=== PATIENT | female | born 1955 | race Caucasian/White ===

== ENCOUNTER 2019-05-12 12:56 | Day surgery (SDC) | payer OTHER, SELFPAY ==
[2019-05-12] VITALS (7 sets, daily range): BP systolic 120–153; BP diastolic 65–84; PULSE 61–75; RESP 14–17; TEMP 35.6–36.3; O2SAT 91–99; BMI 34.2
[2019-05-12] MEDS: SODIUM CHLORIDE 0.9% 1,000 ML 200 ML IV (13:44)
--- NOTE | 2019-05-12 14:27 | PM.HP.1 ---
History of Present Illness History of Present Illness Date Patient Seen: 05/12/19 Time Patient Seen: 14:29 Chief complaint: [id number] SCREENING COLONOSCOPY Narrative: Patient presents for colorectal screening. Had a screening colonoscopy 5 years ago that demonstrated several adenomatous polyps which were removed. No personal or family history of colon cancer. On further history denies any recent gastrointestinal symptoms. No nausea, vomiting, abdominal pain, loss of appetite, unexplained weight loss, change in bowel habits, diarrhea, constipation, melena, hematochezia, or bright red blood per rectum. Patient History Medical History Adenoma of colon (Acute) Blackhead (Acute) Breast cancer (Acute) Surgical History H/O mastectomy (Acute) Family & Social History Social History: household members spouse Tobacco & Substance use: Smoking Status Never smoker alcohol intake current alcohol intake frequency a few times a week Substance Use Type does not use Meds Home Medications and Allergies Home Medications Medication Instructions Recorded Confirmed Type biotin 1 mg PO DAILY 05/12/19 05/12/19 History cholecalciferol (vitamin D3) 2,000 unit PO DAILY 05/12/19 05/12/19 History [Vitamin D3] fexofenadine-pseudoephedrine 1 tab PO QAM 05/12/19 05/12/19 History [Katt-D 24 Hour] jbvhgwrm-kzz-LX-lycopen-lutein 1 tab PO DAILY 05/12/19 05/12/19 History [Centrum Silver] Allergies Allergy/AdvReac Type Severity Reaction Status Date / Time No Known Drug Allergies Allergy Verified 05/12/19 13:44 Review of Systems Review of Systems Narrative: A 10 point review of systems is negative except as noted in the HPI Exam Vital Signs (past 8 hours): - 05/12/19 13:59 Temperature 97.4 F L Pulse Rate 67 Respiratory Rate 15 Blood Pressure 120/72 Pulse Oximetry 97 Oxygen Delivery Method Room Air Narrative Exam Narrative: General-no acute distress, well nourished HEENT-moist mucous membranes, no scleral icterus Neck-supple, no lymphadenopathy Chest- non labored respirations, clear to auscultation bilaterally Cardiac-regular rate no peripheral edema Abdomen-soft, nontender, non distended Extremities-warm, well perfused Neurological-alert and oriented, no focal deficits Assessment & Plan Assessment and plan (1) Screening for colon cancer: Current visit: Yes Status: Acute Assessment & Plan narrative: The patient requires colorectal screening and colonoscopy is recommended. Technical details were discussed. Risks, benefits, alternatives explained. Risks including but not limited to myocardial infarction, aspiration, bleeding, pain, missed lesion, incomplete examination, need for further radiographic studies, colonic perforation, and need for major abdominal surgery were discussed. All questions were answered to their satisfaction, and they are in agreement with this plan.
[2019-05-12] MEDS: MIDAZOLAM 5 MG/5 ML VIAL IV (14:32)
[2019-05-12] MEDS: fentaNYL 250 MCG/5 ML INJ IV (14:33)
--- NOTE | 2019-05-12 14:37 | SUR.OPER ---
GLASSES IN A LABELED BAG TO PACU WITH PATIENT.
--- NOTE | 2019-05-12 15:10 | PM.OP.ENDO ---
Operative Date/Time/Diagnoses Date of procedure: 05/12/19 Time of procedure: 15:11 Pre-op diagnosis: Screening colonoscopy Post-op diagnosis: same Procedure & Clinicians Study performed: Colonoscopy Same procedure as scheduled: Yes Indications: 63-year-old female last colonoscopy 5 years ago demonstrated adenomatous polyps which were removed presents for routine surveillance. Surgeon: Keshav Barrios Procedure Notes SCOAP/Timeout: Performed Procedure in detail: Patient placed in left lateral decubitus position. Time out was performed. Procedural sedation was administered with Versed and Fentanyl. A rectal exam demonstrated no external hemorrhoids no internal masses. Colonoscopy scope was placed into the rectum and advanced through the colon to the cecum. The ileocecal valve was identified. The scope was then slowly withdrawn examining colon thoroughly in all directions. The colonoscopy was notable for the following 1. No masses or polyps 2. Sigmoid diverticulosis 3. Quality of prep excellent Scope withdrawal time: 6 Sedation minutes: 33 Findings: diverticulosis Specimen(s): none sent Complications: none Impression: Diverticulosis Post-procedure Recommendations: Colonscopy in 10 years Disposition: same day surgery
== END 2019-05-12 16:28 | disposition home or self-care (01) ==
PROVIDERS: Family Provider Physician Assistant Medical; PCP Physician Assistant Medical; Visit Provider Surgery
PROC: 0DJD8ZZ Inspection of Lower Intestinal Tract, Via Natural or Artificial Opening Endoscopic (ICD-10-PCS; CPT 45378; principal; 2019-05-12 14:30)
DX: Z12.11 Encounter for screening for malignant neoplasm of colon (principal); Z86.010 Personal history of colon polyps; K57.30 Diverticulosis of large intestine without perforation or abscess without bleeding
CPT/HCPCS: 45378; 99152; 99153; J2250; J3010

== ENCOUNTER → 2023-05-27 09:50 | Outpatient (CLI) | payer MEDICARE, SELFPAY ==
[2023-05-27 10:20] LABS: Hematocrit 39.5 % (36-46); Hemoglobin 13.2 g/dL (12.0-16.0); Mean Corpuscular HGB Conc 33.5 % (30-36); Mean Corpuscular Hemoglobin 30.1 PG (26-34); Mean Corpuscular Volume 89.7 fL (80-100); Platelet Count 143 X10^3/uL (150-400); Red Cell Distribution Width 13.5 % (11.6-14.8); White Blood Cell Count 6.6 X10^3/uL (4.5-11.0)
[2023-05-27 10:50] LABS: Alanine Aminotransferase 30 IU/L (<35); Albumin 4.1 g/dL (3.5-5.0); Albumin Globulin Ratio 1.4 (1.0-2.8); Alkaline Phosphatase 64 U/L (38-126); Aspartate Aminotransferase 32 IU/L (14-36); Bilirubin Total 0.8 mg/dL (0.2-1.3); Blood Urea Nitrogen 18 mg/dL (7-17); Calcium 9.5 mg/dL (8.4-10.2); Carbon Dioxide 30 mmol/L (22-32); Chloride 105 mmol/L (98-107); Cholesterol 193 mg/dL (140-199); Estimated Glomerular Filt Rate > 60 mL/min (>60); Globulin 2.9 g/dL (1.7-4.1); Glucose 99 mg/dL (80-110); HDL Cholesterol 41 mg/dL (40-60); HEMOLYSIS 16 (0-50); LDL Cholesterol Calculated 128 mg/dL (<100); Potassium 4.4 mmol/L (3.4-5.1); Sodium 141 mmol/L (137-145); Triglycerides 119 mg/dL (35-150)
[2023-05-27 11:19] LABS: TSH w/ Reflex to FT4 3.16 uIU/mL (0.47-4.68)
[2023-05-28 19:00] LABS: Hep C Virus Ab w/Reflex Quant NEGATIVE s/c (NEGATIVE)
== END ==
PROVIDERS: Family Provider Physician Assistant Medical; PCP Internal Medicine; Referring Provider Internal Medicine; Visit Provider Internal Medicine
DX: E78.2 Mixed hyperlipidemia (principal); Z20.9 Contact with and (suspected) exposure to unspecified communicable disease; Z85.3 Personal history of malignant neoplasm of breast
CPT/HCPCS: 36415; 80053; 80061; 84443; 85027; 86803

== ENCOUNTER → 2024-05-23 10:56 | Outpatient (CLI) | payer MEDICARE, SELFPAY ==
[2024-05-23 12:00] LABS: Aspartate Aminotransferase 33 IU/L (14-36); Blood Urea Nitrogen 18 mg/dL (7-17); Calcium 9.6 mg/dL (8.4-10.2); Carbon Dioxide 31 mmol/L (22-32); Chloride 103 mmol/L (98-107); Cholesterol 219 mg/dL (140-199); Estimated Glomerular Filt Rate > 60 mL/min (>60); Glucose 104 mg/dL (80-110); HDL Cholesterol 47 mg/dL (40-60); HEMOLYSIS < 15 (0-50); LDL Cholesterol Calculated 146 mg/dL (<100); Potassium 4.7 mmol/L (3.4-5.1); Sodium 139 mmol/L (137-145); Triglycerides 128 mg/dL (35-150)
== END ==
PROVIDERS: Family Provider Physician Assistant Medical; PCP Internal Medicine; Referring Provider Internal Medicine; Visit Provider Internal Medicine
DX: E78.2 Mixed hyperlipidemia (principal)
CPT/HCPCS: 36415; 80048; 80061; 84450

== ENCOUNTER 2024-09-29 09:24 | Day surgery (SDC) | payer MEDICARE, SELFPAY ==
--- NOTE | 2024-09-29 | PATH_ITS ---
[facility] Accession Number: [id number] No. of containers..02 Tissue . 01 Material submitted: . PART A: colon - CECAL POLYP PART B: rectum - RECTAL POLYPS . 01 Diagnosis: Part A: CECAL POLYP: Tubular adenoma. . Part B: RECTAL POLYPS: Hyperplastic polyps. [facility] 10/06/2024 1417 Local . 01 Electronically signed: . Jesús Anthony MD, Pathologist NPI- [id number] . 01 Gross description: . Part A: CECAL POLYP: Received in formalin is 1 fragment(s) of cordero, soft tissue measuring 1.1 x 0.4 x 0.4 cm submitted entirely in 1 cassette(s) . Part B: RECTAL POLYPS: Received in formalin are 4 fragment(s) of cordero, soft tissue measuring 0.1 x 0.1 x 0.1 cm to 0.4 x 0.4 x 0.2 cm submitted entirely in 1 cassette(s) /[facility] 10/06/2024 1417 Local . 01 Pathologist provided ICD-10: D12.0, K62.1 . 01 CPT . 217606, [id number] Specimen Comment: A courtesy copy of this report has been sent to [phone] Performed at: [address] [facility] [address] [address], [place], [place] [id number] MD Jesús Anthony MD Phone: [phone]
[2024-09-29 09:49] VITALS: BP 141/78; PULSE 61; RESP 16; TEMP 36.5; O2SAT 100
[2024-09-29] MEDS: LACTATED RINGERS 1,000 ML 42 ML IV (10:07)
--- NOTE | 2024-09-29 10:24 | PM.HP.IH.1 ---
History of Present Illness History of Present Illness Date Patient Seen: 09/29/24 Time Patient Seen: 10:24 Chief complaint: Screening Colonoscopy Narrative: Bailey is a 69-year-old woman who presents for a colonoscopy. She has a intermittent, occasional rectal bleeding usually when traveling. This is thought to be from hemorrhoids. She did have a colonoscopy in [address] Barrios with no polyps found. She has had other colonoscopies in the past where polyps were found. [facility] Medical History Adenoma of colon Allergic rhinitis Blackhead Bleeding hemorrhoids Cataracts, bilateral (~2015) Chicken pox Environmental allergies (~1993) Heavy menstrual period Hemorrhoid (~1987) History of breast cancer History of colonic polyps Measles Mixed hyperlipidemia Mumps Obesity (BMI 30.0-34.9) Plantar warts Recurrent sinusitis (~1997) Wears glasses Surgical History Anesthesia H/O mastectomy History of breast surgery History of colonoscopy History of surgery of uterus (~09/1997) Family History Father History of heart disease Mother Breast cancer Brother Lung cancer Brother No problems noted. Grandfather Stroke Grandmother History of heart disease Grandfather COPD (chronic obstructive pulmonary disease) Grandmother No problems noted. Social History details: (Binh), 2 sons, retired hebrew teacher 2015 household members: spouse Smoking Status: Never smoker alcohol intake: current Meds Home Medications and Allergies Home Medications ?Medication ?Instructions ?Recorded ?Confirmed ?Type cholecalciferol (vitamin D3) 50 2,000 unit PO DAILY 05/12/19 09/29/24 History mcg (2,000 unit) tablet (Vitamin D3) fexofenadine-pseudoephedrine ER 1 tab PO QAM 05/12/19 09/29/24 History 180 mg-240 mg tablet,ext.release 24 hr (Katt-D 24 Hour) rlcdgyoj-ouv-xuqzq acid 0.4 1 tab PO DAILY 05/12/19 09/29/24 History mg-lycopene 300 mcg-lutein 250 mcg tablet (Centrum Silver) ascorbic acid (vitamin C) 1,000 mg 2,000 mg PO DAILY 04/30/23 09/29/24 History tablet fluconazole 200 mg tablet 200 mg PO .Weekly 04/30/23 09/29/24 History fluoride (sodium) 1.1 % dental 1 applic PO DAILY 04/30/23 09/29/24 History cream (Denta 5000 Plus) zinc gluconate 50 mg tablet 50 mg PO DAILY 04/30/23 09/29/24 History amoxicillin 875 mg-potassium 1 tab PO BID 04/28/24 09/29/24 History clavulanate 125 mg tablet Held on 09/29/24. Instructions: Provider's Order azelastine 137 mcg (0.1 %) nasal 1 - 2 spray intranasal BID PRN 04/28/24 09/29/24 History spray allergic symptoms sodium,potassium,mag sulfates 17.5 See Rx Instructions PO .COMPLEX 08/25/24 09/29/24 Rx gram-3.13 gram-1.6 gram oral soln #354 mL (Suprep Bowel Prep Kit) Allergies Allergy/AdvReac Type Severity Reaction Status Date / Time grass pollen Allergy Mild unknown Verified 09/29/24 09:45 house dust mite Allergy Mild unkown Verified 09/29/24 09:45 mold Allergy Mild unknown Verified 09/29/24 09:45 Exam Vital Signs (past 8 hours): - 09/29/24 09:49 Temperature 97.7 F Pulse Rate 61 Respiratory Rate 16 Blood Pressure 141/78 H Pulse Oximetry 100 Oxygen Delivery Method Room Air Oxygen Delivery Method Room Air Const General: No acute distress Resp Effort & Inspection: normal respiratory effort Assessment & Plan Assessment and plan (1) History of colonic polyps: Status: Acute Plan Colonoscopy for intermittent rectal bleeding and history of Time-Based Coding :: [TOTAL MINUTES] spent with patient and on the chart (including review of chart, obtaining history, exam, reviewing outside data, placing orders, documenting exam and treatment plan, and counseling patient) on [DATE]. PROFEE Clinical Team Lead Document charge(s): No
--- NOTE | 2024-09-29 11:10 | P.OP.COLON_ITS ---
Operative Date/Time/Diagnoses Date of procedure: 09/29/24 Time of procedure: 11:10 Pre-op diagnosis: Rectal bleeding and history of Post-op diagnosis: same Procedure & Clinicians Study performed: Colonoscopy Same procedure(s) as scheduled: Yes Surgeon: Raphael Sharma Procedure Notes Procedure in detail: Surgeon: Raphael Sharma MD Anesthesia: Talon Wen WORD PROCESSOR Procedure: The patient was brought to the endoscopy suite, placed in left lateral decubitus position. The patient was connected to monitoring devices. A time-out was performed. Sedation was administered. Once the patient was adequately sedated, a digital rectal exam was performed and was normal. The scope was then inserted and advanced to the cecum where the appendiceal orifice was identified and photographed. The scope was then slowly withdrawn over greater than 6 minutes. The mucosa was thoroughly inspected. There was a 5 mm polyp cecum removed with a cold snare. There was moderate sigmoid colon diverticulosis. There were small rectum, each about 2 mm each removed with cold snare and sent together as rectal polyps. The scope was retroflexed in the rectum. Internal hemorrhoids were noted. The scope was straightened and removed. The patient was awakened and brought to recovery. Scope withdrawal time: 8 minutes Sedation time: 29 minutes EBL: 2 mL Findings: A 5 mm cecal polyp, moderate sigmoid colon diverticulosis and 4 small rectal polyps Post-procedure Disposition: PACU
[2024-09-29 11:19] VITALS: BP 110/70; PULSE 74; RESP 16; TEMP 36.2; O2SAT 98
[2024-09-29 11:20] VITALS: BP 112/70; PULSE 78; RESP 16; O2SAT 98
== END 2024-09-29 11:42 | disposition home or self-care (01) ==
PROVIDERS: PCP Internal Medicine; Referring Provider Surgery; Visit Provider Surgery
PROC: 0DJD8ZZ Inspection of Lower Intestinal Tract, Via Natural or Artificial Opening Endoscopic (ICD-10-PCS; CPT 45378; principal; 2024-09-29 11:00)
DX: K62.5 Hemorrhage of anus and rectum (principal); Z86.0100 Personal history of colon polyps, unspecified; K57.30 Diverticulosis of large intestine without perforation or abscess without bleeding; D12.0 Benign neoplasm of cecum; K62.1 Rectal polyp
CPT/HCPCS: 45385; J2704